=== PATIENT | male | born 1945 | race Caucasian/White ===

== ENCOUNTER 2017-11-13 01:50 | Emergency (ER) | payer OTHER ==
[~2017-11-13 01:50] MED LIST: ASPIRIN325 MG PO; AVAPRO150 MG PO; Aspirin E.C. PO; COUMADIN,JANTOVE5 MG PO; COUMADIN3 MG PO; GABAPENTIN600 MG PO; LASIX40 MG PO; Lopressor PO; METOPROLOL SUCC50 MG PO; Neurontin PO; Norvasc PO; PLAVIX75 MG PO; Percocet 5/325,Endoc PO; Protonix PO; SERTRALINE HCL50 MG PO; Sertraline HCl PO; TRICOR48 MG PO; TRILIPIX45 MG PO; ZESTRIL,PRINIVIL5 MG PO; ZOCOR10 MG PO
== END 2017-11-13 02:02 ==
LOC: EME → EDBD 01:50 → EME 01:50
PROC: 5A12012 Performance of Cardiac Output, Single, Manual (ICD-10-PCS; principal; 2017-11-13)
DX: I46.9 Cardiac arrest, cause unspecified (principal); Z95.5 Presence of coronary angioplasty implant and graft; Z87.891 Personal history of nicotine dependence; Z79.82 Long term (current) use of aspirin
CPT/HCPCS: 99281; 99285; J0282; J3475